=== PATIENT | female | born 1995 | race Two or more races ===

== ENCOUNTER 2025-06-21 11:11 | Inpatient (IN) | payer OTHER ==
[~2025-06-21] VITALS: Ht 160 cm; Wt 65.8 kg
--- NOTE | 2025-06-21 12:35 | NUR ---
PACIENTE FEMINA, C.C [facility]GR[place] VAGINAL, SE UBICA EN PASILLO PARA SER EVALUADA.
[2025-06-21] MEDS ORDERED: NASAL MIST126 ML (13:17)
[2025-06-21] MEDS ORDERED: TRAMADOL HCL 50 MG TABLET PO STA (13:21)
[2025-06-21] MEDS ORDERED: 0.9 % SODIUM CHLORIDE 1,000 ML IV STA (13:21)
--- NOTE | 2025-06-21 15:47 | NUR ---
SE ORIENTA A PACIENTE SOBRE [place] MEDICO, REFIERE ENTENDER. SE REALIZAN MUESTRAS DE LABORATORIO BAJO MEDIDAS ASEPTICAS. SE ADMINISTRAN MEDICMANETOS DENISE ORDEN MEDICA. SE COORDINA SONOGRAMA.
[2025-06-21 16:03] LABS: BASO % 0.2 % (0.1-1.2); EOS # 0.10 (0.04-0.54); EOS % 0.5 % (0.7-7.0); LYMPH # 1.61 (1.18-3.74); LYMPH % 8.7 % (19.3-53.1); MEAN PLATELET VOLUME 9.20 fl (9.4-12.4); MONO # 0.65 (0.24-0.82); MONO % 3.5 % (4.7-12.5); NEUT # 15.99 (1.56-6.13); NEUT % 86.6 % (34.0-71.1); RED CELL DISTRIBUTION WIDTH 12.1 % (11.6-14.4)
[2025-06-21 16:36] LABS: INR 0.99
[2025-06-21 16:42] LABS: ALT/SGPT 30.0 U/L (12-78); AST/SGOT 16.0 U/L (15-37); BILIRUBIN TOTAL 0.74 mg/dL (0.3-1.2); BUN CREA RATIO 18.0 (7.0-25.0); CREATININE SERUM 0.57 mg/dL (0.55-1.02); GFR 127.23; GLOBULINA 4.0 G/DL (2.4-3.5); GLUCOSE FASTING 89.0 mg/dL (65-100); OSMOLALITY SERUM 274.0 MOSM/KG (275-295)
[2025-06-21] MEDS ORDERED: FAMOtidine 10 MG/ML (4ML VIAL) IV PUSH ONE (17:30)
[2025-06-21] MEDS ORDERED: 0.9 % SODIUM CHLORIDE 1,000 ML IV ONE (17:30)
[2025-06-21] MEDS ORDERED: ONDANSETRON HCL 2 MG/ML VIAL IV ONE (17:30)
[2025-06-21] MEDS ORDERED: MORPHINE SULFATE 4 MG/ML CARTRIDGE IV ONE (17:30)
[2025-06-21] MEDS ORDERED: PIPERACILLIN/TAZOBACTAM SODIUM 3.375 GM VIAL IV ONE (17:48)
[2025-06-21] MEDS ORDERED: ONDANSETRON HCL 2 MG/ML VIAL ONE (17:48)
[2025-06-21] MEDS ORDERED: FAMOTIDINE/PF 20 MG/2 ML VIAL ONE (17:48)
[2025-06-21] MEDS ORDERED: PIPERACILLIN/TAZOBACTAM SODIUM 3.375 GM VIAL IV SCH (18:00)
[2025-06-21] MEDS ORDERED: MORPHINE SULFATE 4 MG/ML CARTRIDGE IV PRN (20:45)
[2025-06-21 21:23] LABS: BASO % 0.2 % (0.1-1.2); EOS # 0.00 (0.04-0.54); EOS % 0.0 % (0.7-7.0); LYMPH # 0.95 (1.18-3.74); LYMPH % 3.8 % (19.3-53.1); MEAN PLATELET VOLUME 9.00 fl (9.4-12.4); MONO # 0.80 (0.24-0.82); MONO % 3.2 % (4.7-12.5); NEUT # 22.92 (1.56-6.13); NEUT % 91.8 % (34.0-71.1); RED CELL DISTRIBUTION WIDTH 12.1 % (11.6-14.4)
[2025-06-21] MEDS ORDERED: SUGAMMADEX SODIUM 200 MG/2 ML VIAL IV ONE (23:02)
[2025-06-21 23:15] LABS: URINE APPEARANCE Clear; URINE BILIRRUBIN Negative (NEGATIVE); URINE BLOOD Moderate; URINE COLOR Yellow; URINE GLUCOSE Negative (NEGATIVE); URINE KETONE Trace (NEGATIVE); URINE LEUKOCYTE Trace; URINE NITRATE Negative; URINE PROTEIN Negative (NEGATIVE); URINE UROBILINOGEN 0.2 E.U./dl
[2025-06-21 23:20] LABS: URINE BACTERIA 123.5 uL (0.0-1933); URINE EPITHELIAL CELLS 5.6 uL (0.0-38.8); URINE RBC 245.3 uL (0.0-20.8); URINE WBC 40.2 uL (0.0-23.2)
[2025-06-21 23:27] LABS: URINE CAST 0.14 uL (0.0-1.40)
[2025-06-22] MEDS ORDERED: MORPHINE SULFATE 4 MG/ML CARTRIDGE IV SCH (01:00)
[2025-06-22] MEDS ORDERED: PIPERACILLIN/TAZOBACTAM SODIUM 3.375 GM VIAL IV ONE (02:29)
[2025-06-22 03:16] VITALS: BP 100/64
[2025-06-22 04:04] VITALS: O2SAT 99
[2025-06-22] MEDS ORDERED: OxyCODONE HCL 5 MG TABLET (ROXICODONE) PO SCH (05:00)
[2025-06-22 07:07] LABS: BASO % 0.2 % (0.1-1.2); EOS # 0.03 (0.04-0.54); EOS % 0.2 % (0.7-7.0); LYMPH # 1.90 (1.18-3.74); LYMPH % 10.1 % (19.3-53.1); MEAN PLATELET VOLUME 9.30 fl (9.4-12.4); MONO # 0.79 (0.24-0.82); MONO % 4.2 % (4.7-12.5); NEUT # 15.99 (1.56-6.13); NEUT % 84.6 % (34.0-71.1); RED CELL DISTRIBUTION WIDTH 12.3 % (11.6-14.4)
[2025-06-22 08:00] VITALS: BP 113/64
[2025-06-22] MEDS ORDERED: DOCUSATE SODIUM 100MG CAP PO SCH (08:00)
[2025-06-22] MEDS ORDERED: SIMETHICONE 125 MG CAPSULE PO SCH (08:00)
[2025-06-22 15:58] VITALS: BP 99/64
[2025-06-23] VITALS: BP 102/66
[2025-06-23 09:31] VITALS: BP 109/70
== END 2025-06-23 12:48 | disposition home or self-care (01) | DRG 819 ==
LOC: ER 11:11 → O/R 21:39 → OB/GYN 21:39
PROVIDERS: General Practice; ADMIT Obstetrics & Gynecology; ATTEND Obstetrics & Gynecology
PROC: 0UT60ZZ Resection of Left Fallopian Tube, Open Approach (ICD-10-PCS; 2025-06-21)
PROC: 10D20ZZ Extraction of Products of Conception, Ectopic, Open Approach (ICD-10-PCS; 2025-06-21)
PROC: BW21YZZ Computerized Tomography (CT Scan) of Abdomen and Pelvis using Other Contrast (ICD-10-PCS; 2025-06-21)
PROC: BU4CZZZ Ultrasonography of Uterus and Ovaries (ICD-10-PCS; 2025-06-21)
PROC: 0UB10ZZ Excision of Left Ovary, Open Approach (ICD-10-PCS; principal; 2025-06-21 22:15)
DX: O00.102 Left tubal pregnancy without intrauterine pregnancy (principal); N83.12 Corpus luteum cyst of left ovary